=== PATIENT | female | born 1935 | race Native Hawaiian/Other Pacific Islander ===

== ENCOUNTER 2018-04-19 07:40 | Outpatient (CLI) | payer OTHER, MEDICARE ==
[2018-04-19 08:48] LABS: POTASSIUM 2.9 mmol/L (3.6-5.2)
[2018-04-19 08:54] LABS: PLATELET COUNT 313 K/uL (152-353)
== END 2018-04-19 19:45 | disposition home or self-care (01) ==
LOC: LABW 07:40
PROVIDERS: Internal Medicine
DX: I11.9 Hypertensive heart disease without heart failure (principal); E78.5 Hyperlipidemia, unspecified; R73.01 Impaired fasting glucose; I48.0 Paroxysmal atrial fibrillation
CPT/HCPCS: 36415; 80048; 80061; 80076; 81000; 84132; 84443; 85027

== ENCOUNTER 2018-04-26 10:09 | Outpatient (CLI) | payer OTHER, MEDICARE | END 2018-04-26 19:16 | disposition home or self-care (01) | LOC: LABW 10:09 | DX: E87.6 Hypokalemia (principal) | CPT/HCPCS: 36415; 84132 ==

== ENCOUNTER 2018-05-09 14:49 | Outpatient (CLI) | payer OTHER, MEDICARE ==
[2018-05-09 15:43] LABS: PLATELET COUNT 398 K/uL (152-353)
== END 2018-05-09 19:44 | disposition home or self-care (01) ==
LOC: LABW 14:49
PROVIDERS: Nurse Practitioner Family
DX: L50.8 Other urticaria (principal); R53.82 Chronic fatigue, unspecified; D64.9 Anemia, unspecified
CPT/HCPCS: 36415; 80053; 80074; 81000; 82728; 82784; 83516; 83520; 84439; 84443; 85027; 86039; 86160; 86352

== ENCOUNTER 2018-05-13 10:13 | Outpatient (CLI) | payer OTHER, MEDICARE | END 2018-05-13 20:31 | disposition home or self-care (01) | LOC: RAD 10:13 | DX: L50.8 Other urticaria (principal); R91.8 Other nonspecific abnormal finding of lung field ==

== ENCOUNTER 2018-05-21 14:24 | Outpatient (CLI) | payer OTHER, MEDICARE | END 2018-05-21 22:14 | disposition home or self-care (01) | LOC: LAB 14:24 | DX: R53.82 Chronic fatigue, unspecified (principal); D64.9 Anemia, unspecified; L50.8 Other urticaria | CPT/HCPCS: 82272; 87015; 87045; 87328; 87329; 87338; 87899 ==

== ENCOUNTER 2018-05-27 12:31 | Outpatient (CLI) | payer OTHER, MEDICARE | END 2018-05-27 19:12 | disposition home or self-care (01) | LOC: LAB 12:31 | DX: L50.8 Other urticaria (principal); R53.82 Chronic fatigue, unspecified; D64.9 Anemia, unspecified | CPT/HCPCS: 82272 ==

== ENCOUNTER 2018-05-28 12:51 | Outpatient (CLI) | payer OTHER, MEDICARE | END 2018-05-28 22:40 | disposition home or self-care (01) | LOC: LAB 12:51 | DX: L50.8 Other urticaria (principal); R53.82 Chronic fatigue, unspecified; D64.9 Anemia, unspecified | CPT/HCPCS: 82272 ==

== ENCOUNTER 2018-10-13 07:12 | Outpatient (CLI) | payer OTHER, MEDICARE ==
[2018-10-13] MEDS ORDERED: LEXAPRO20 MG PO (07:28)
[2018-10-13] MEDS ORDERED: COZAAR100 MG PO (07:28)
[2018-10-13] MEDS ORDERED: LIPITOR40 MG PO (07:29)
[2018-10-13] MEDS ORDERED: CARV6.25 PO (07:29)
[2018-10-13] MEDS ORDERED: AMLODIPINE BESYLATE PO (07:30)
[2018-10-13] MEDS ORDERED: ELIQUIS STARTER5 MG PO (07:30)
== END 2018-10-13 07:16 | disposition short-term general hospital (02) ==
LOC: AMB 07:12
DX: R42 Dizziness and giddiness (principal)
CPT/HCPCS: A0425; A0429

== ENCOUNTER 2018-10-13 07:17 | Observation (INO) | payer OTHER, MEDICARE ==
[~2018-10-13] VITALS: Ht 162.6 cm; Wt 64.9 kg
[2018-10-13 07:17] VITALS: BP 127/56; TEMP 97.7
[2018-10-13] MEDS ORDERED: LEXAPRO20 MG PO (07:28)
[2018-10-13] MEDS ORDERED: COZAAR100 MG PO (07:28)
[2018-10-13] MEDS ORDERED: CARV6.25 PO (07:29)
[2018-10-13] MEDS ORDERED: LIPITOR40 MG PO (07:29)
[2018-10-13] MEDS ORDERED: AMLODIPINE BESYLATE PO (07:30)
[2018-10-13] MEDS ORDERED: ELIQUIS STARTER5 MG PO (07:30)
[2018-10-13 08:49] LABS: PLATELET COUNT 341 K/uL (152-353)
[2018-10-13 09:08] LABS: POTASSIUM 3.5 mmol/L (3.6-5.2)
[2018-10-13 15:10] VITALS: BP 139/69; TEMP 97.7; Ht 162.6 cm; Wt 64.9 kg
[2018-10-13 16:00] VITALS: BP 122/61; TEMP 98.3
[2018-10-13 19:55] VITALS: BP 115/65; TEMP 98.1
[2018-10-13 23:56] VITALS: BP 122/61; TEMP 98.4
[2018-10-14 04:00] VITALS: BP 131/68; TEMP 98.2
[2018-10-14 06:09] LABS: PLATELET COUNT 389 K/uL (152-353)
[2018-10-14 06:14] LABS: POTASSIUM 3.6 mmol/L (3.6-5.2)
[2018-10-14 08:00] VITALS: BP 127/80; TEMP 98.1
[2018-10-14 12:00] VITALS: BP 125/55; TEMP 98.7
== END 2018-10-14 15:50 | disposition home or self-care (01) ==
LOC: ED 07:21 → MED/SURG 13:40
PROVIDERS: Family Medicine; ADMIT Family Medicine
DX: H81.10 Benign paroxysmal vertigo, unspecified ear (principal); I48.2 Chronic atrial fibrillation; E78.49 Other hyperlipidemia; I50.9 Heart failure, unspecified; F32.9 Major depressive disorder, single episode, unspecified; K21.9 Gastro-esophageal reflux disease without esophagitis; R06.02 Shortness of breath; R42 Dizziness and giddiness
CPT/HCPCS: 36415; 80053; 81000; 82550; 82553; 83880; 84484; 85027; 85379; 93005; 94760; 96360; 96365; 96366; 96374; 96375; 99220; 99284; G0378; J2930; J3490

== ENCOUNTER 2019-01-07 09:30 | Outpatient (CLI) | payer OTHER, MEDICARE ==
[~2019-01-07 09:30] MED LIST: AMLODIPINE BESYLATE PO; CARV6.25 PO; COZAAR100 MG PO; ELIQUIS STARTER5 MG PO; LEXAPRO20 MG PO; LIPITOR40 MG PO
== END 2019-01-07 23:43 | disposition home or self-care (01) ==
LOC: CT 09:30
DX: M51.36 Other intervertebral disc degeneration, lumbar region (principal); S32.000A Wedge compression fracture of unspecified lumbar vertebra, initial encounter for closed fracture

== ENCOUNTER 2019-03-24 13:51 | Outpatient (CLI) | payer OTHER, MEDICARE | END 2019-03-24 19:18 | disposition home or self-care (01) | LOC: RAD 13:51 | DX: M54.5 Low back pain (principal); M51.36 Other intervertebral disc degeneration, lumbar region; M48.061 Spinal stenosis, lumbar region without neurogenic claudication; M51.16 Intervertebral disc disorders with radiculopathy, lumbar region; H81.4 Vertigo of central origin; M81.0 Age-related osteoporosis without current pathological fracture ==

== ENCOUNTER 2019-04-25 12:57 | Outpatient (CLI) | payer OTHER, MEDICARE | END 2019-04-25 19:13 | disposition home or self-care (01) | LOC: US 12:57 | DX: L03.818 Cellulitis of other sites (principal); M79.605 Pain in left leg; M79.604 Pain in right leg ==

== ENCOUNTER 2019-08-05 12:35 | Outpatient (CLI) | payer OTHER, MEDICARE | END 2019-08-05 19:30 | disposition home or self-care (01) | LOC: RESP 12:35 | DX: R27.8 Other lack of coordination (principal); H81.10 Benign paroxysmal vertigo, unspecified ear; G60.8 Other hereditary and idiopathic neuropathies; M54.16 Radiculopathy, lumbar region | CPT/HCPCS: 95861; 95910 ==

== ENCOUNTER 2020-01-12 20:30 | Emergency (ER) | payer OTHER, MEDICARE ==
[~2020-01-12] VITALS: Ht 157.5 cm; Wt 69.9 kg
[2020-01-12 21:19] LABS: PLATELET COUNT 351 K/uL (152-353)
[2020-01-12 21:24] LABS: POTASSIUM 4.5 mmol/L (3.6-5.2); SODIUM 138 mmol/L (136-145)
[2020-01-13 01:19] VITALS: BP 145/74; TEMP 98.3
== END 2020-01-13 01:19 | disposition home or self-care (01) ==
LOC: ED 20:30
PROVIDERS: Emergency Medicine Emergency Medical Services
DX: I10 Essential (primary) hypertension (principal); I50.9 Heart failure, unspecified
CPT/HCPCS: 36415; 80053; 83880; 84484; 85027; 93005; 96374; 96375; 99284; J1940; J2060

== ENCOUNTER 2020-01-15 14:39 | Outpatient (CLI) | payer OTHER, MEDICARE ==
[2020-01-15 15:10] LABS: POTASSIUM 3.6 mmol/L (3.6-5.2)
== END 2020-01-15 20:10 | disposition home or self-care (01) ==
LOC: LABW 14:39
PROVIDERS: Internal Medicine Cardiovascular Disease
DX: I11.0 Hypertensive heart disease with heart failure (principal); I50.22 Chronic systolic (congestive) heart failure
CPT/HCPCS: 36415; 80048